=== PATIENT | female | born 1990 | race Two or more races ===

== ENCOUNTER 2018-09-21 15:00 | Emergency (ER) | payer BC, OTHER ==
[~2018-09-21] VITALS: Ht 154.9 cm; Wt 48.8 kg
[2018-09-21 15:03] VITALS: BP 110/75
[2018-09-21] MEDS ORDERED: KETOROLAC 60 MG/2 ML IM ONE (15:30)
[2018-09-21] MEDS ORDERED: CYCLOBENZAPRINE 10 MG TABLET PO ONE (15:30)
[2018-09-21] MEDS ORDERED: ONDANSETRON ODT 4 MG PO ONE (15:30)
--- NOTE | 2018-09-21 15:31 | NUR ---
PT ARRIVED TO ROOM 38 AMBULATORY WITH FAMILY. 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 MD TO BEDSIDE, NEW ORDERS RECEIVED. PT AAO X 4, DRESSED IN GOWN, STANDING IN ROOM, STEADY GAIT.
[2018-09-21] MEDS ORDERED: CYCLOBENZAPRINE 10 MG TABLET ONE (15:35)
[2018-09-21] MEDS ORDERED: KETOROLAC 30 MG/1 ML ONE (15:36)
[2018-09-21] MEDS ORDERED: ONDANSETRON ODT 4 MG ONE (15:36)
--- NOTE | 2018-09-21 15:44 | NUR ---
MEDS ADMINISTERED PER MD ORDER, PT REQUESTED HALF DOSE OF FLEXERIL.
--- NOTE | 2018-09-21 15:57 | NUR ---
Patient/Caregiver given discharge instructions and they have confirmed that they understand the instructions. Patient ambulatory with steady gait.
== END 2018-09-21 15:58 | disposition home or self-care (01) ==
LOC: ED 15:30
DX: G44.211 Episodic tension-type headache, intractable (principal)
CPT/HCPCS: 96372; 99283; J1885; Q0162